=== PATIENT | female | born 1965 | race Caucasian/White ===

== ENCOUNTER 2018-06-07 18:27 | Inpatient (IN) | payer OTHER ==
[2018-06-07 22:21] LABS: ADD MAN DIFF? NO
[2018-06-07] MEDS: METHYLPREDNISOLONE 125 MG INJ IV (22:22)
[2018-06-07] MEDS: CEFTRIAXONE 1 GM/50 ML (PMX) 50 ML IVPB (22:22)
[2018-06-07 22:23] LABS: BASOPHILS % 0.2 % (0.0-2.0); EOSINOPHILS % 0.2 % (0.0-7.0); HEMATOCRIT 31.4 % (37.0-47.0); HEMOGLOBIN 10.2 g/dl (12.0-16.0); LYMPHOCYTES # 2.2 10^3/ul (0.8-2.9); LYMPHOCYTES % 13.4 % (15.0-51.0); MEAN CORPUSCULAR HEMOGLOBIN 28.1 pg (29.0-33.0); MEAN CORPUSCULAR HGB CONC 32.5 g/dl (32.0-37.0); MEAN CORPUSCULAR VOLUME 86.5 fl (82.0-101.0); MEAN PLATELET VOLUME 10.1 fl (7.4-10.4); MONOCYTE # 1.4 10^3/ul (0.3-0.9); MONOCYTES % 8.3 % (0.0-11.0); NEUTROPHIL # 12.8 10^3/ul (1.6-7.5); NEUTROPHILS % 77.3 % (39.0-77.0); PLATELET COUNT 276 10^3/UL (140-415); RED BLOOD COUNT 3.63 10^6/ul (4.20-5.40)
[2018-06-07 22:23] LABS: WHITE BLOOD COUNT 16.5 10^3/ul (4.8-10.8)
[2018-06-07] MEDS: SODIUM CHLORIDE 0.9% 1L BAG IV* (22:23)
[2018-06-07] MEDS: ACETAMINOPHEN 325 MG TAB PO (22:32)
[2018-06-07 22:43] LABS: ALANINE AMINOTRANSFERASE 21 IU/L (13-69); ALBUMIN 4.2 g/dl (3.3-4.9); ALBUMIN/GLOBULIN RATIO 1.05; ALKALINE PHOSPHATASE 98 IU/L (42-121); ANION GAP 12 (5-13); ASPARTATE AMINO TRANSFERASE 29 IU/L (15-46); BILIRUBIN,INDIRECT 0.4 mg/dl (0-1.1); BILIRUBIN,TOTAL 0.4 mg/dl (0.2-1.3); BLOOD UREA NITROGEN 46 mg/dl (7-20); CALCIUM 8.3 mg/dl (8.4-10.2); CARBON DIOXIDE 24 mmol/L (21-31); CHLORIDE 100 mmol/L (97-110); CREATININE 2.09 mg/dl (0.44-1.00); Estimated GFR 25 mL/min (>60); GLUCOSE 213 mg/dl (70-220); POTASSIUM 4.1 mmol/L (3.5-5.1); SODIUM 136 mmol/L (135-144); TOTAL PROTEIN 8.2 g/dl (6.1-8.1)
[2018-06-07 22:55] LABS: B-TYPE NATRIURETIC PEPTIDE 1830 PG/ML (0-125); TROPONIN-I 0.022 ng/ml (0.000-0.120)
[2018-06-07] MEDS: AZITHROMYCIN 500MG/NS (PMX) 250 ML IV (23:23)
[2018-06-07] MEDS ORDERED: ONDANSETRON 4 MG INJ IV (23:30)
[2018-06-07] MEDS ORDERED: ACETAMINOPHEN 325 MG TAB PO (23:30)
[2018-06-07] MEDS: FERROUS SULFATE (EC) 325 MG TAB PO (23:36)
[2018-06-08] MEDS ORDERED: BISACODYL (EC) 5 MG TAB PO
[2018-06-08] MEDS ORDERED: NACL 0.9% 3 ML SYG IV
[2018-06-08] MEDS ORDERED: LEVALBUTEROL (NEB) 1.25 MG/0.5 ML AMP HHN
[2018-06-08] MEDS ORDERED: DOCUSATE SODIUM 100 MG CAP PO
[2018-06-08] MEDS ORDERED: ONDANSETRON 4 MG INJ IV
[2018-06-08] MEDS: ALBUTEROL/IPRATROPIUM (NEB) 3 ML AMP HHN ×6 (00:22→20:11)
[2018-06-08] MEDS ORDERED: GLUCOSE GEL 15 GRAM TUBE BUCCAL (00:30)
[2018-06-08] MEDS ORDERED: DEXTROSE 50% 50 ML SYRINGE IV ×2 (00:30)
[2018-06-08] MEDS ORDERED: GLUCOSE GEL 15 GRAM TUBE PO ×2 (00:30)
[2018-06-08] MEDS ORDERED: GLUCAGON 1 MG INJ IM (00:30)
[2018-06-08] MEDS: FUROSEMIDE 40 MG INJ IV ×2 (00:39→08:40)
[2018-06-08 00:59] LABS: CREATINE KINASE 252 IU/L (23-200)
[2018-06-08 01:12] LABS: CK INDEX 0.3; CK-MB 0.69 ng/ml (0.0-2.4)
[2018-06-08 03:32] LABS: LACTIC ACID 1.3 mmol/L (0.5-2.0)
[2018-06-08] MEDS: PANTOPRAZOLE (EC) 40 MG TAB PO (05:30)
[2018-06-08 06:10] LABS: HEMATOCRIT 28.6 % (37.0-47.0); HEMOGLOBIN 9.1 g/dl (12.0-16.0); MEAN CORPUSCULAR HEMOGLOBIN 28.2 pg (29.0-33.0); MEAN CORPUSCULAR HGB CONC 31.8 g/dl (32.0-37.0); MEAN CORPUSCULAR VOLUME 88.5 fl (82.0-101.0); MEAN PLATELET VOLUME 10.6 fl (7.4-10.4); PLATELET COUNT 233 10^3/UL (140-415); RED BLOOD COUNT 3.23 10^6/ul (4.20-5.40)
[2018-06-08 06:10] LABS: WHITE BLOOD COUNT 16.3 10^3/ul (4.8-10.8)
[2018-06-08 06:31] LABS: CREATINE KINASE 253 IU/L (23-200)
[2018-06-08 06:33] LABS: ALBUMIN 3.5 g/dl (3.3-4.9); ALBUMIN/GLOBULIN RATIO 1.02; ALKALINE PHOSPHATASE 81 IU/L (42-121); ASPARTATE AMINO TRANSFERASE 22 IU/L (15-46); BILIRUBIN,INDIRECT 0.2 mg/dl (0-1.1); BILIRUBIN,TOTAL 0.2 mg/dl (0.2-1.3); BLOOD UREA NITROGEN 47 mg/dl (7-20); CALCIUM 7.7 mg/dl (8.4-10.2); CARBON DIOXIDE 20 mmol/L (21-31); CHLORIDE 100 mmol/L (97-110); CHOL/HDL RATIO 3.9 RATIO; CHOLESTEROL 122 mg/dl (100-200); CREATININE 2.02 mg/dl (0.44-1.00); Estimated GFR 26 mL/min (>60); HDL CHOLESTEROL 31 mg/dl (37-92); LDL CHOLESTEROL,CALCULATED 76 mg/dl; MAGNESIUM 1.9 mg/dl (1.7-2.5); POTASSIUM 4.6 mmol/L (3.5-5.1); TOTAL PROTEIN 6.9 g/dl (6.1-8.1); TRIGLYCERIDES 77 mg/dl (0-149)
[2018-06-08 06:37] LABS: ADD MAN DIFF? YES; POSITIVE DIFF @See below
[2018-06-08 06:38] LABS: HEMOGLOBIN A1C 8.6 % (0-5.9)
[2018-06-08 06:38] LABS: ALANINE AMINOTRANSFERASE 27 IU/L (13-69); ANION GAP 19 (5-13); SODIUM 139 mmol/L (135-144)
[2018-06-08 06:40] LABS: GLUCOSE 456 mg/dl (70-220)
[2018-06-08 06:43] LABS: CK INDEX 0.4; TROPONIN-I 0.014 ng/ml (0.000-0.120)
[2018-06-08] MEDS: predniSONE 20 MG TAB PO (08:26)
[2018-06-08] MEDS: AMLODIPINE 10 MG TAB PO (08:26)
[2018-06-08] MEDS: ALLOPURINOL 100 MG TAB PO (08:27)
[2018-06-08] MEDS: LORATADINE 10 MG TAB PO (08:27)
[2018-06-08] MEDS: APIXABAN 5 MG TABLET PO ×2 (08:27→21:14)
[2018-06-08] MEDS: FERROUS SULFATE (EC) 325 MG TAB PO (08:27)
[2018-06-08 09:21] LABS: ANISOCYTOSIS 1+ (0-0); BAND NEUTROPHILS #M 3.2 10^3/ul (0.0-0.6); BAND NEUTROPHILS % (M) 20 % (0-4); GIANT THROMBO% (M) 1 % (0-0); LYMPHOCYTES #M 0.6 10^3/ul (0.8-2.9); LYMPHOCYTES % (M) 4 % (15-51); MICROCYTOSIS 1+ (0-0); MONOCYTE #M 0.3 10^3/ul (0.3-0.9); MONOCYTES % (M) 2 % (0-11); PLATELET ESTIMATE NORMAL; POLYCHROMASIA 1+ (0-0); REACTIVE LYMPHOCYTES #M 0.3 10^3/ul (0.0-0.0); REACTIVE LYMPHOCYTES% (M) 2 % (0-0); SEG NEUT #M 12.3 10^3/ul (1.6-7.5); SEGMENTED NEUTROPHILS (M) % 72 % (39-77); SMUDGE%M 2 % (0-0)
[2018-06-08] MEDS: INSULIN ASPART [NOVOLOG] 3 ML PEN SC ×9 (09:25→22:10)
[2018-06-08] MEDS: ACETAMINOPHEN 325 MG TAB PO (09:33)
[2018-06-08] MEDS: FLUTICASONE/VILANTEROL 200-25 INH DEVICE INH ×2 (09:37→14:31)
[2018-06-08] MEDS: INSULIN REGULAR, HUMAN 100 UNIT/1 ML 3ML VIAL IV (10:06)
[2018-06-08 11:45] LABS: ADD UMIC NO; UR ASCORBIC ACID NEGATIVE (NEGATIVE); UR BILIRUBIN (Dip) NEGATIVE (NEGATIVE); UR BLOOD (Dip) NEGATIVE (NEGATIVE); UR CLARITY CLEAR (CLEAR); UR COLOR STRAW (YELLOW); UR GLUCOSE (Dip) 3+ mg/dL (NEGATIVE); UR KETONES (Dip) NEGATIVE (NEGATIVE); UR LEUKOCYTE ESTERASE (Dip) NEGATIVE Leu/ul (NEGATIVE); UR NITRITE (Dip) NEGATIVE (NEGATIVE); UR SPECIFIC GRAVITY (Dip) 1.007 (1.003-1.030); UR TOTAL PROTEIN (Dip) NEGATIVE (NEGATIVE); UR UROBILINOGEN (Dip) NEGATIVE (NEGATIVE)
[2018-06-08 11:55] LABS: SODIUM,URINE RANDOM 89 mmol/L (30-90)
[2018-06-08 11:55] LABS: CREATININE,URINE RANDOM 16.72 mg/dl (20-320)
[2018-06-08] MEDS: NPH, HUMAN INSULIN ISOPHANE 3ML VIAL SC (12:14)
[2018-06-08] MEDS: METOPROLOL 25 MG TAB PO ×2 (14:31→21:14)
[2018-06-08] MEDS ORDERED: INSULIN GLARGINE [LANTus] (100 UNITS/ML) SYG SC ×2 (21:00)
[2018-06-08] MEDS ORDERED: HEPARIN 5,000 UNIT/1 ML VIAL SC (21:00)
[2018-06-08] MEDS: MONTELUKAST 10 MG TAB PO (21:14)
[2018-06-08] MEDS: CEFTRIAXONE 2 GM/50 ML (PMX) 50 ML IVPB (21:14)
[2018-06-08] MEDS: INSULIN GLARGINE [LANTus] (100 UNITS/ML) SYG SC (21:42)
[2018-06-08] MEDS: AZITHROMYCIN 500MG/NS (PMX) 250 ML IVPB (22:12)
[2018-06-08] MEDS: ZOLPIDEM 5 MG TAB PO (23:38)
[2018-06-09] MEDS: ALBUTEROL/IPRATROPIUM (NEB) 3 ML AMP HHN ×6 (00:22→20:57)
[2018-06-09] MEDS: ACCU-CHEK XX (02:00)
[2018-06-09 03:33] LABS: GLUCOSE 646 mg/dl (70-220)
[2018-06-09] MEDS: SOD CHLORIDE 0.9% 500 ML IV (04:17)
[2018-06-09] MEDS: INSULIN REGULAR, HUMAN 100 UNIT/1 ML 3ML VIAL IV ×2 (04:22→06:39)
[2018-06-09 05:41] LABS: ADD MAN DIFF? NO
[2018-06-09 05:45] LABS: BASOPHILS % 0.1 % (0.0-2.0); HEMATOCRIT 26.7 % (37.0-47.0); HEMOGLOBIN 8.8 g/dl (12.0-16.0); LYMPHOCYTES # 1.2 10^3/ul (0.8-2.9); LYMPHOCYTES % 6.8 % (15.0-51.0); MEAN CORPUSCULAR HEMOGLOBIN 28.4 pg (29.0-33.0); MEAN CORPUSCULAR VOLUME 86.1 fl (82.0-101.0); MEAN PLATELET VOLUME 10.6 fl (7.4-10.4); MONOCYTE # 0.8 10^3/ul (0.3-0.9); MONOCYTES % 4.9 % (0.0-11.0); NEUTROPHIL # 14.8 10^3/ul (1.6-7.5); NEUTROPHILS % 87.8 % (39.0-77.0); PLATELET COUNT 251 10^3/UL (140-415); RED CELL DISTRIBUTION WIDTH 13.8 % (11.5-14.5)
[2018-06-09 05:45] LABS: WHITE BLOOD COUNT 16.9 10^3/ul (4.8-10.8)
[2018-06-09] MEDS: PANTOPRAZOLE (EC) 40 MG TAB PO (05:59)
[2018-06-09 06:13] LABS: ANION GAP 17 (5-13); BLOOD UREA NITROGEN 61 mg/dl (7-20); CARBON DIOXIDE 19 mmol/L (21-31); CHLORIDE 99 mmol/L (97-110); CREATININE 1.56 mg/dl (0.44-1.00); Estimated GFR 35 mL/min (>60); MAGNESIUM 2.1 mg/dl (1.7-2.5); PHOSPHORUS 4.2 mg/dl (2.5-4.9); POTASSIUM 3.8 mmol/L (3.5-5.1); SODIUM 135 mmol/L (135-144)
[2018-06-09 06:15] LABS: GLUCOSE 593 mg/dl (70-220)
[2018-06-09] MEDS: INSULIN ASPART [NOVOLOG] 3 ML PEN SC ×8 (07:59→20:30)
[2018-06-09] MEDS: FLUTICASONE/VILANTEROL 200-25 INH DEVICE INH ×2 (09:00→10:14)
[2018-06-09] MEDS ORDERED: INSULIN GLARGINE [LANTus] (100 UNITS/ML) SYG SC (09:00)
[2018-06-09] MEDS: INSULIN GLARGINE [LANTus] (100 UNITS/ML) SYG SC ×2 (10:10→20:30)
[2018-06-09] MEDS: LORATADINE 10 MG TAB PO (10:15)
[2018-06-09] MEDS: FUROSEMIDE 40 MG INJ IV (10:15)
[2018-06-09] MEDS: METOPROLOL 25 MG TAB PO ×2 (10:15→20:23)
[2018-06-09] MEDS: FERROUS SULFATE (EC) 325 MG TAB PO (10:15)
[2018-06-09] MEDS: APIXABAN 5 MG TABLET PO (10:15)
[2018-06-09] MEDS: predniSONE 20 MG TAB PO ×2 (10:16→12:04)
[2018-06-09 15:22] LABS: CREATININE, RANDOM URINE 18 mg/dL (20-275); MICROALBUMIN 1.4 mg/dL; MICROALBUMIN/CREATININE RATIO 78 (<30)
[2018-06-09] MEDS: AZITHROMYCIN 500MG/NS (PMX) 250 ML IVPB (20:20)
[2018-06-09] MEDS: CEFTRIAXONE 2 GM/50 ML (PMX) 50 ML IVPB (20:20)
[2018-06-09] MEDS: MONTELUKAST 10 MG TAB PO (20:23)
[2018-06-09] MEDS: traZODone 50 MG TAB PO (22:41)
[2018-06-10] MEDS: ALBUTEROL/IPRATROPIUM (NEB) 3 ML AMP HHN ×5 (01:09→16:24)
[2018-06-10] MEDS: ACCU-CHEK XX (02:00)
[2018-06-10] MEDS: PANTOPRAZOLE (EC) 40 MG TAB PO (05:37)
[2018-06-10 05:50] LABS: ADD MAN DIFF? NO; BASOPHILS % 0.1 % (0.0-2.0); EOSINOPHILS % 0.2 % (0.0-7.0); HEMATOCRIT 28.9 % (37.0-47.0); HEMOGLOBIN 9.3 g/dl (12.0-16.0); LYMPHOCYTES # 1.5 10^3/ul (0.8-2.9); LYMPHOCYTES % 8.3 % (15.0-51.0); MEAN CORPUSCULAR HEMOGLOBIN 27.8 pg (29.0-33.0); MEAN CORPUSCULAR HGB CONC 32.2 g/dl (32.0-37.0); MEAN CORPUSCULAR VOLUME 86.3 fl (82.0-101.0); MEAN PLATELET VOLUME 10.5 fl (7.4-10.4); MONOCYTE # 0.8 10^3/ul (0.3-0.9); MONOCYTES % 4.3 % (0.0-11.0); NEUTROPHILS % 86.4 % (39.0-77.0); PLATELET COUNT 318 10^3/UL (140-415); RED BLOOD COUNT 3.35 10^6/ul (4.20-5.40); RED CELL DISTRIBUTION WIDTH 13.8 % (11.5-14.5)
[2018-06-10 05:50] LABS: WHITE BLOOD COUNT 17.4 10^3/ul (4.8-10.8)
[2018-06-10 06:35] LABS: ANION GAP 13 (5-13); BLOOD UREA NITROGEN 53 mg/dl (7-20); CALCIUM 8.4 mg/dl (8.4-10.2); CARBON DIOXIDE 24 mmol/L (21-31); CHLORIDE 104 mmol/L (97-110); CREATININE 1.37 mg/dl (0.44-1.00); Estimated GFR 40 mL/min (>60); GLUCOSE 305 mg/dl (70-220); MAGNESIUM 2.4 mg/dl (1.7-2.5); PHOSPHORUS 4.6 mg/dl (2.5-4.9); POTASSIUM 4.3 mmol/L (3.5-5.1); SODIUM 141 mmol/L (135-144)
[2018-06-10] MEDS: INSULIN ASPART [NOVOLOG] 3 ML PEN SC ×6 (08:10→18:02)
[2018-06-10] MEDS: FUROSEMIDE 40 MG INJ IV (08:11)
[2018-06-10] MEDS: LORATADINE 10 MG TAB PO (08:14)
[2018-06-10] MEDS: FERROUS SULFATE (EC) 325 MG TAB PO (08:14)
[2018-06-10] MEDS: FLUTICASONE/VILANTEROL 200-25 INH DEVICE INH (08:15)
[2018-06-10] MEDS: METOPROLOL 25 MG TAB PO (08:15)
[2018-06-10] MEDS: predniSONE 20 MG TAB PO (08:15)
[2018-06-10] MEDS: LISINOPRIL 10 MG TAB PO (09:25)
[2018-06-10] MEDS: HEPARIN 5,000 UNIT/1 ML VIAL SC (09:25)
== END 2018-06-10 18:10 | disposition home or self-care (01) | DRG 193 ==
LOC: 6WM 23:20 → E/R 18:27
DX: J18.9 Pneumonia, unspecified organism (principal); I50.43 Acute on chronic combined systolic (congestive) and diastolic (congestive) heart failure; J96.01 Acute respiratory failure with hypoxia; I13.0 Hypertensive heart and chronic kidney disease with heart failure and stage 1 through stage 4 chronic kidney disease, or unspecified chronic kidney disease; N17.9 Acute kidney failure, unspecified; Z68.42 Body mass index [BMI] 45.0-49.9, adult; J45.901 Unspecified asthma with (acute) exacerbation; E66.2 Morbid (severe) obesity with alveolar hypoventilation; R65.10 Systemic inflammatory response syndrome (SIRS) of non-infectious origin without acute organ dysfunction; E11.22 Type 2 diabetes mellitus with diabetic chronic kidney disease; D63.1 Anemia in chronic kidney disease; I27.20 Pulmonary hypertension, unspecified; Z86.718 Personal history of other venous thrombosis and embolism; Z79.01 Long term (current) use of anticoagulants; N18.3 Chronic kidney disease, stage 3 (moderate); M10.9 Gout, unspecified
CPT/HCPCS: 36415; 71045; 76775; 80048; 80053; 80061; 81003; 82043; 82550; 82553; 82947; 82962; 83036; 83605; 83735; 83880; 84100; 84155; 84300; 84443; 84484; 85025; 87040; 87400; 93005; 93306; 93970; 94640; 94664; 96365; 96375; 99285-25

== ENCOUNTER 2019-01-24 12:05 | Emergency (ER) | payer OTHER | END 2019-01-24 15:50 | disposition home or self-care (01) | LOC: FTE 12:05 | DX: M79.89 Other specified soft tissue disorders (principal); I10 Essential (primary) hypertension; J45.909 Unspecified asthma, uncomplicated; Z79.4 Long term (current) use of insulin | CPT/HCPCS: 81025; 93971; 99284-25 ==